=== PATIENT | male | born 1970 | race Caucasian/White ===

== ENCOUNTER 2019-10-31 09:15 | Inpatient (IN) | payer OTHER ==
[~2019-10-31] VITALS: Ht 172.7 cm; Wt 86.2 kg
[2019-11-07] MEDS ORDERED: DDAVP 0.0110 MCG/0.1 NASAL (09:36)
[2019-11-15] MEDS ORDERED: PERCOCET 5-3251 EACH PO ×2 (09:51)
== END 2019-11-15 15:12 | disposition home or self-care (01) | DRG 330 ==
LOC: EDSTATUS 09:15 → ADM 09:15 → O/R 11-12 06:45 → SURH 11-12 09:15
PROVIDERS: ADMIT Surgery
PROC: 07TB4ZZ Resection of Mesenteric Lymphatic, Percutaneous Endoscopic Approach (ICD-10-PCS; 2019-11-12)
PROC: 0DJD8ZZ Inspection of Lower Intestinal Tract, Via Natural or Artificial Opening Endoscopic (ICD-10-PCS; 2019-11-12)
PROC: 0DTN4ZZ Resection of Sigmoid Colon, Percutaneous Endoscopic Approach (ICD-10-PCS; principal; 2019-11-12 13:00)
DX: D12.5 Benign neoplasm of sigmoid colon (principal); E23.2 Diabetes insipidus

== ENCOUNTER 2019-11-11 07:09 | Day surgery (SDC) | payer OTHER ==
[~2019-11-11 07:09] MED LIST: DDAVP 0.0110 MCG/0.1 NASAL
== END 2019-11-11 11:55 | disposition home or self-care (01) ==
LOC: AMB-ENDOS 07:09
DX: D12.5 Benign neoplasm of sigmoid colon (principal)

== ENCOUNTER 2023-11-13 07:38 | Outpatient (CLI) | payer OTHER ==
[~2023-11-13 07:38] MED LIST changes: +PERCOCET 5-3251 EACH PO
== END 2023-11-13 14:31 | disposition home or self-care (01) ==
LOC: SONOGRAMA 07:38
PROVIDERS: ATTEND Internal Medicine Gastroenterology
DX: R12 Heartburn (principal); Z86.010 Personal history of colon polyps; R14.3 Flatulence; Q44.6 Cystic disease of liver; R31.21 Asymptomatic microscopic hematuria; R33.9 Retention of urine, unspecified